=== PATIENT | female | born 1960 | race African-American/Black ===

== ENCOUNTER 2021-07-31 08:48 | Emergency (ER) | payer SELFPAY ==
[~2021-07-31] VITALS: Ht 165.1 cm; Wt 111.4 kg
[~2021-07-31 08:48] MED LIST: BENADRYL50 MG PO; NO HOME MEDICATIONS
[2021-07-31 09:03] VITALS: PULSE 69; TEMP 98.6
[2021-07-31 09:25] VITALS: BP 163/105
== END 2021-07-31 09:25 | disposition home or self-care (01) ==
LOC: COL.ER 08:48
DX: M25.561 Pain in right knee (principal); X50.1XXA Overexertion from prolonged static or awkward postures, initial encounter

== ENCOUNTER → 2021-10-25 | Outpatient (CLI) | payer SELFPAY | LOC: COL.RAD 12:12 | DX: M23.203 Derangement of unspecified medial meniscus due to old tear or injury, right knee (principal); M94.261 Chondromalacia, right knee ==